=== PATIENT | female | born 1975 | race Caucasian/White ===

== ENCOUNTER → 2017-10-24 11:19 | Outpatient (CLI) | payer MEDICAID, SELFPAY ==
--- NOTE | 2017-10-24 12:03 | EKG12_ITS ---
Test Reason : PALPS Blood Pressure : / mmHG Vent. Rate : 060 BPM Atrial Rate : 060 BPM P-R Int : 150 ms QRS Dur : 082 ms QT Int : 420 ms P-R-T Axes : 029 059 039 degrees QTc Int : 420 ms Normal sinus rhythm Normal ECG Confirmed by SOM CLAUDIO, FLORIAN ([id number]), health editor EDITH KOENIG ([id number]) on 10/26/2017 2:34:51 PM Referred By: Shantel MINOR Confirmed By:FLORIAN KEARNS MD
== END ==
DX: R00.2 Palpitations (principal)
CPT/HCPCS: 93005

== ENCOUNTER → 2017-11-03 16:22 | Outpatient (CLI) | payer MEDICAID, SELFPAY ==
--- NOTE | 2017-11-03 16:35 | RAD_ITS ---
XR Spine Cervical 4 or 5 Views INDICATION: PAIN x2 YEARS COMPARISON: None TECHNIQUE: 5 views of the cervical spine FINDINGS: There is mild lower cervical kyphosis with large bridging osteophyte at C6-7. Remaining levels appear within normal limits. There is normal alignment at the atlantoaxial articulation. Prevertebral soft tissue stripe is within normal limits. RAD/Cerv Spine 4 or 5 Views IMPRESSION: Lower cervical kyphosis with large anterior bridging osteophyte at C6-7. at 2057 Reported and signed by: Simran Hernandez MD Electronically Signed: Simran Hernandez MD at 19:55 EST Tel , Service support ,
== END ==
PROVIDERS: Visit Provider Nurse Practitioner Family
DX: M40.202 Unspecified kyphosis, cervical region (principal)
CPT/HCPCS: 72050

== ENCOUNTER → 2017-11-16 13:05 | Outpatient (CLI) | payer MEDICAID, SELFPAY ==
--- NOTE | 2017-11-16 13:07 | HPBI_ITS ---
MAMMOGRAPHY - BILATERAL DIAGNOSTIC REASON FOR EXAM: Female, 41 years old. Left bloody discharge. PERTINENT HISTORY: Mother with breast cancer. Grandmother with breast cancer. Aunt with breast cancer. TECHNIQUE: Digital bilateral breast maria fernanda (3D mammographic acquisition) in the CC and MLO projections. 2-D mediolateral oblique (MLO) and craniocaudad (CC) views of both breasts were obtained. CAD: Full Field Digital Mammography with Computer Added Detection was performed. COMPARISON: Comparison is made with prior examination dated January 20, 2017. FINDINGS: Breast Composition: The breasts are heterogeneously dense, which may obscure small masses. There are no dominant masses or suspicious calcifications. Stable benign-appearing bilateral axillary lymph nodes. No other significant abnormalities are identified. There has been no significant change since the prior study. BI/DIAG MAMM W/CAD, BILAT IMPRESSION: Stable bilateral diagnostic mammogram. With the patient's history of left bloody discharge, correlation with ultrasound is recommended. ASSESSMENT CATEGORY: BIRADS Category 0: Incomplete. Need additional imaging evaluation. A letter regarding these results will be sent to the patient by the facility within 30 days. Approximately 10% of breast cancers are not detected by mammography. A normal mammogram should not delay biopsy of a clinically suspicious abnormality. Electronically Signed: Anselmo Randolph MD at 14:55 EDT Tel [phone], Service support ,
--- NOTE | 2017-11-16 13:12 | US_ITS ---
STUDY: ULTRASOUND BREAST - LEFT REASON FOR EXAM: Female, 41 years old. One episode of bloody discharge from the left pararenal. TECHNIQUE: Axial and longitudinal images of the LEFT breast were performed with a high resolution ultrasound transducer. COMPARISON: Comparison is made with prior mammogram done earlier in the day. FINDINGS: LEFT Breast: Mildly dilated retroareolar ducts are seen. No solid or cystic mass lesion is present. US/Breast Limited Unilateral IMPRESSION: Mild retroareolar ductal dilatation. ASSESSMENT CATEGORY: BIRADS Category 2: Benign. A letter regarding these results will be sent to the patient by the facility within 30 days. Electronically Signed: Anselmo Randolph MD at 14:17 EDT Tel [phone], Service support ,
== END ==
DX: N64.52 Nipple discharge (principal)
CPT/HCPCS: 76642; 77062; 77066; G0279

== ENCOUNTER → 2017-11-18 07:44 | Outpatient (CLI) | payer MEDICAID, SELFPAY ==
--- NOTE | 2017-11-18 10:28 | PFTCOMP ---
COMPLETE PULMONARY FUNCTION TEST INTERPRETATION Brief HPI: Patient is a 41 year old female, currently under the care of Jazmyne Shields, who presents to [facility] for complete pulmonary function tests secondary to diagnosis of dyspnea. Respiratory therapist reports good effort and reproducible results. Interpretation: Forced expiration spirometry shows a mild large airways obstructive ventilatory defect with an FEV1 of 88 % predicted. There is a significant bronchodilator response in FEV1 by ATS criteria. Spirograms are of good quality and plateau slowly, indicating slowly emptying areas of the lungs. The respiratory flow volume loop shows decreased expiratory flow rates at high lung volumes consistent with small airways obstruction. Lung volumes by body plethysmography show a normal total lung capacity at 5.77 L, 102 % predicted. All other lung volumes are within normal limits. Diffusion capacity by carbon monoxide is normal at 72 % predicted. The airway resistance is elevated. No previous pulmonary function tests were available for review. Impression: Fully reversible mild large airways obstructive ventilatory defect, consistent with the diagnosis of asthma.
== END ==
DX: R06.02 Shortness of breath (principal)
CPT/HCPCS: 94060; 94726; 94729

== ENCOUNTER → 2017-11-24 13:48 | Outpatient (CLI) | payer MEDICAID, SELFPAY ==
--- NOTE | 2017-11-24 13:50 | ECHOD_ITS ---
Reason For Study: PALPITATIONS Procedure This was a 2D Doppler, Color Flow transthoracic echocardiogram. Exam performed in department. Left Ventricle Normal LV size. Left ventricular systolic function is normal. The estimated ejection fraction is 65 %. No regional wall motion abnormalities noted. Right Ventricle Normal RV size. Normal systolic function. Atria Normal left atrium. Normal right atrium. Mitral Valve Normal mitral valve. Tricuspid Valve Normal tricuspid valve. Mild tricuspid valve insufficiency. Pulmonary artery systolic pressure is 29 mmHg. Aortic Valve Normal aortic valve. Pulmonic Valve Normal pulmonic valve. Great Vessels Normal aortic root. The pulmonary artery is normal size. Pericardium/Pleural No pericardial effusion. MMode/2D Measurements & Calculations LVIDd: 4.6 cm IVSd: 0.93 cm Ao root diam: 3.0 cm LVIDs: 2.6 cm LVPWd: 1.0 cm LA dimension: 3.6 cm RVDd: 3.1 cm FS: 43.0 % LAV(MOD-bp): 53.8 ml LA A4 area: 17.7 cm2 RA A4 area: 14.7 cm2 LAV(MOD-bp) Indexed: 27.7 ml/m2 LAV(MOD-sp2): 54.0 ml LAV(MOD-sp4): 53.8 ml Time Measurements MV dec time: 0.20 sec Doppler Measurements & Calculations MV E max teo: 94.8 cm/sec Lat Peak E' Teo: 14.8 cm/sec Med Peak E' Teo: 9.6 cm/sec MV A max teo: 59.8 cm/sec E/E' lat: 6.4 E/E' med: 9.9 MV E/A: 1.6 Ao V2 max: 114.9 cm/sec LV V1 max: 105.0 cm/sec PA V2 max: 86.1 cm/sec Ao max P.3 mmHg LV V1 max P.4 mmHg TR max teo: 243.8 cm/sec TR max P.0 mmHg Interpretation Summary Normal LV size. Left ventricular systolic function is normal. The estimated ejection fraction is 65 %. Mild tricuspid valve insufficiency. Pulmonary artery systolic pressure is 29 mmHg. Structurally normal valves. Ordering Physician: Shantel Farris Referring Physician: KAVITA SERNA Performed By: Sydney Patel, JOSE MARTIN, RVT
== END ==
DX: R00.2 Palpitations (principal)
CPT/HCPCS: 93306

== ENCOUNTER → 2019-05-24 11:42 | Outpatient (CLI) | payer MEDICAID, SELFPAY ==
[2019-05-24 14:28] LABS: Thyroid Stim Hormone (TSH) 3.77 uIU/mL (0.358-3.74)
== END ==
PROVIDERS: Family Provider Family Medicine; PCP Family Medicine; Referring Provider Family Medicine; Visit Provider Family Medicine
DX: F41.9 Anxiety disorder, unspecified (principal)
CPT/HCPCS: 36415; 84443

== ENCOUNTER 2021-04-21 12:56 | Emergency (ER) | payer MEDICAID, SELFPAY ==
[2021-04-21 12:57] VITALS: BP 129/92; PULSE 87; RESP 14; TEMP 36.5; O2SAT 99; BMI 25.0
--- NOTE | 2021-04-21 13:05 | RAD_ITS ---
STUDY: X-RAY - RIGHT FOOT CLINICAL: Lateral right foot pain and swelling, right foot injury. TECHNIQUE: 3 view(s) of the foot. COMPARISON: None. FINDINGS: Normal talus, calcaneus, and tarsal bones. Normal visualized subtalar, talonavicular, calcaneocuboid, tarsal and tarsometatarsal articulations. There is a nondisplaced fracture of the base of the fifth metatarsal with intra-articular extension. Normal metatarsophalangeal joint of the great toe. Normal tibial and fibular sesamoid bones. Normal interphalangeal joint of the great toe. Normal phalanges of the great toe. Normal second through fifth metatarsophalangeal joints. Normal interphalangeal joints and phalanges of the lesser toes. There is soft tissue swelling. RAD/Foot min 3 Views IMPRESSION: Nondisplaced fracture of the fifth metatarsal base. Electronically Signed: Brennen Clemens MD at 13:23 EDT Tel , Service support ,
== END 2021-04-21 14:09 | disposition left against medical advice (07) ==
LOC: ED 14:25
DX: S92.354A Nondisplaced fracture of fifth metatarsal bone, right foot, initial encounter for closed fracture (principal)
CPT/HCPCS: 73630

== ENCOUNTER 2021-06-26 16:22 | Outpatient (CLI) | payer MEDICAID, SELFPAY ==
[2021-06-26] MEDS: 0.9% Saline Lock 10 ML Syringe IV (17:42)
[2021-06-26 17:44] VITALS: BP 152/96; PULSE 80; RESP 16; TEMP 36.4; O2SAT 100; BMI 25.0
[2021-06-26 18:25] VITALS: BP 148/99; PULSE 77; RESP 16; TEMP 37; O2SAT 99
[2021-06-26 19:22] VITALS: BP 128/99; PULSE 76; RESP 16; TEMP 36.6; O2SAT 100
== END 2021-06-26 19:37 | disposition home or self-care (01) ==
LOC: MS3OUT 16:23 → MS3 17:15
PROVIDERS: Referring Provider Nurse Practitioner Acute Care; Visit Provider Nurse Practitioner Acute Care
DX: Z23 Encounter for immunization (principal); U07.1 COVID-19
CPT/HCPCS: J7050; M0245; Q0245; A4216

== ENCOUNTER → 2022-04-11 | Outpatient (CLI) | payer MEDICAID, SELFPAY ==
[2022-04-11 14:07] LABS: Absolute Neutrophil Count 5.8 X10^3/uL (2.0-7.7); Basophil# 0.02 X10^3/uL; Basophil% 0.2 % (0-1); Eosinophil# 0.11 X10^3/uL; Eosinophils% 1.2 % (0-5); Hematocrit 41.7 % (37-47); Hemoglobin 13.8 g/dL (12.0-15.0); Mean Corp Hgb Conc 33.1 g/dL (32-36); Mean Corpuscular Hgb 28.9 pg (27.0-32.0); Mean Corpuscular Volume 87.2 fL (81-99); Mean Platelet Vol. 10.2 fl (6.2-12.0); Monocyte# 1.05 X10^3/uL; Monocyte% 11.5 % (0-10); NRBC Flagged by Analyzer 0 % (0-5); Neutrophil # 5.82 X10^3/uL (2.7-7.7); Neutrophil % 63.8 % (47-70); Platelet Count 315 K/mm3 (150-450); RBC Distribution Width CV 12.4 % (11.6-14.6); RBC Distribution Width SD 39.6 fl (35.1-43.9); Red Blood Count 4.78 M/mm3 (4.2-5.4); White Blood Count 9.1 K/mm3 (4.4-11.0)
[2022-04-11 15:03] LABS: ALB/GLOB Ratio 0.8 RATIO (0.9-2.4); AST(SGOT) 15 U/L (15-37); Alanine Aminotransfer ALT/SGPT 26 U/L (13-56); Albumin, Serum 3.3 g/dL (3.2-5.0); Alkaline Phosphatase 63 U/L (45-117); Anion Gap 7 (5-15); BUN 13 mg/dL (7-18); Calcium,Total 8.6 mg/dL (8.5-10.1); Chloride 109 mmol/L (98-107); EST Glomerular Filtration Rate 64 mL/min (>60); Est Glom Filt Rate - Afr Amer 77 mL/min (>60); Glucose 91 mg/dL (74-106); Protein, Total 7.3 g/dL (6.4-8.2); Sodium Level 140 mmol/L (136-145); Thyroid Stim Hormone (TSH) 3.67 uIU/mL (0.358-3.74)
[2022-04-12 08:02] LABS: Hepatitis B Surface Antibody Non-Reactive
[2022-04-13 07:08] LABS: HEPATITIS B SURFACE AG Negative (Negative); Hep C Antibodies 0.2 s/co ratio (0.0-0.9); Hepatitis A IgM Antibody Negative (Negative); Hepatitis B Core AB IgM Negative (Negative)
[2022-04-13 08:26] LABS: Hepatitis A AB, Total Negative (Negative)
[2022-04-16 17:07] LABS: Alternaria alternata <0.10 kU/L (Class 0); Beef <0.10 kU/L (Class 0); Bermuda Grass <0.10 kU/L (Class 0); Bluegrass, Kentucky <0.10 kU/L (Class 0); Cat Hair/Dander, Standard <0.10 kU/L (Class 0); Chocolate <0.10 kU/L (Class 0); Corn <0.10 kU/L (Class 0); D farinae Mite <0.10 kU/L (Class 0); D pteronyssinus <0.10 kU/L (Class 0); Dog Epithelia 0.32 kU/L (Class I); Egg, Whole <0.10 kU/L (Class 0); Elm, American White <0.10 kU/L (Class 0); Milk (Cow) <0.10 kU/L (Class 0); Mouse Urine <0.10 kU/L (Class 0); Oak, White <0.10 kU/L (Class 0); Peanut <0.10 kU/L (Class 0); Plantain, English <0.10 kU/L (Class 0); Pork <0.10 kU/L (Class 0); Soybean <0.10 kU/L (Class 0); Wheat <0.10 kU/L (Class 0)
[2022-04-17 14:27] LABS: ANTINUCLEAR ANTIBODIES DIRECT Negative (Negative)
== END | disposition home or self-care (01) ==
LOC: LAB 13:37
PROVIDERS: Visit Provider Nurse Practitioner Adult Health
DX: R21 Rash and other nonspecific skin eruption (principal); Z20.9 Contact with and (suspected) exposure to unspecified communicable disease
CPT/HCPCS: 36415; 80053; 80074; 84443; 85025; 86003; 86005; 86038; 86706; 86708

== ENCOUNTER → 2022-10-04 | Outpatient (CLI) | payer MEDICAID, SELFPAY ==
[2022-10-04 16:35] LABS: Hematocrit 42.8 % (37-47); Hemoglobin 14.1 g/dL (12.0-15.0); Mean Corp Hgb Conc 32.9 g/dL (32-36); Mean Corpuscular Hgb 28.8 pg (27.0-32.0); Mean Corpuscular Volume 87.5 fL (81-99); Mean Platelet Vol. 10.4 fl (6.2-12.0); Platelet Count 296 K/mm3 (150-450); RBC Distribution Width CV 12.3 % (11.6-14.6); RBC Distribution Width SD 39.4 fl (35.1-43.9); Red Blood Count 4.89 M/mm3 (4.2-5.4); White Blood Count 9.3 K/mm3 (4.4-11.0)
[2022-10-04 16:57] LABS: Erythrocyte Sedimentation Rate 9 mm/hr (0-30)
[2022-10-04 17:26] LABS: ALB/GLOB Ratio 0.8 RATIO (0.9-2.4); AST(SGOT) 28 U/L (15-37); Alanine Aminotransfer ALT/SGPT 56 U/L (13-56); Albumin, Serum 3.3 g/dL (3.2-5.0); Alkaline Phosphatase 91 U/L (45-117); Anion Gap 5 (5-15); BUN 12 mg/dL (7-18); BUN/Creat Ratio 11.1 RATIO (10-20); Calcium,Total 8.6 mg/dL (8.5-10.1); Chloride 104 mmol/L (98-107); Creatinine, Serum 1.08 mg/dL (0.55-1.02); EST Glomerular Filtration Rate 58 mL/min (>60); Est Glom Filt Rate - Afr Amer 70 mL/min (>60); Globulin 4.2 g/dL (2.2-4.2); Glucose 103 mg/dL (74-106); Protein, Total 7.5 g/dL (6.4-8.2); Rheumatoid Factor < 10.0 IU/mL (<15); Sodium Level 140 mmol/L (136-145); T4 Free Direct 1.16 ng/dL (0.76-1.46); Thyroid Stim Hormone (TSH) 4.24 uIU/mL (0.358-3.74)
[2022-10-06 18:52] LABS: ANTINUCLEAR ANTIBODIES DIRECT Negative (Negative)
== END | disposition home or self-care (01) ==
LOC: LAB 16:03
DX: E03.9 Hypothyroidism, unspecified (principal); M79.10 Myalgia, unspecified site
CPT/HCPCS: 36415; 80053; 84439; 84443; 85027; 85652; 86038; 86140; 86431

== ENCOUNTER → 2023-01-04 | Outpatient (CLI) | payer MEDICAID, SELFPAY ==
[2023-01-04 13:41] LABS: Absolute Lymphocyte Count 2.53 X10^3/uL (0.83-4.51); Absolute Neutrophil Count 5.8 X10^3/uL (2.0-7.7); Basophil# 0.04 X10^3/uL; Basophil% 0.4 % (0-1); Eosinophil# 0.06 X10^3/uL; Eosinophils% 0.6 % (0-5); Hematocrit 40.4 % (37-47); Hemoglobin 12.9 g/dL (12.0-15.0); Lymphocyte # 2.53 X10^3/ul (0.83-4.51); Lymphocyte % 26.6 % (19-41); Mean Corp Hgb Conc 31.9 g/dL (32-36); Mean Corpuscular Hgb 27.8 pg (27.0-32.0); Mean Corpuscular Volume 87.1 fL (81-99); Mean Platelet Vol. 10.3 fl (6.2-12.0); Monocyte# 1.04 X10^3/uL; Monocyte% 10.9 % (0-10); NRBC Flagged by Analyzer 0 % (0-5); Neutrophil % 61.2 % (47-70); Platelet Count 297 K/mm3 (150-450); RBC Distribution Width CV 13.5 % (11.6-14.6); RBC Distribution Width SD 42.9 fl (35.1-43.9); Red Blood Count 4.64 M/mm3 (4.2-5.4); White Blood Count 9.5 K/mm3 (4.4-11.0)
[2023-01-04 14:07] LABS: ALB/GLOB Ratio 0.9 RATIO (0.9-2.4); AST(SGOT) 19 U/L (15-37); Alanine Aminotransfer ALT/SGPT 34 U/L (13-56); Albumin, Serum 3.6 g/dL (3.2-5.0); Alkaline Phosphatase 78 U/L (45-117); Anion Gap 4 (5-15); BUN 13 mg/dL (7-18); BUN/Creat Ratio 13.8 RATIO (10-20); Calcium,Total 8.7 mg/dL (8.5-10.1); Chloride 109 mmol/L (98-107); Creatinine, Serum 0.94 mg/dL (0.55-1.02); EST Glomerular Filtration Rate 68 mL/min (>60); Est Glom Filt Rate - Afr Amer 82 mL/min (>60); Globulin 3.9 g/dL (2.2-4.2); Glucose 94 mg/dL (74-106); Potassium 3.9 mmol/L (3.5-5.1); Protein, Total 7.5 g/dL (6.4-8.2); Sodium Level 140 mmol/L (136-145)
[2023-01-04 14:09] LABS: hCG Titer Quant., Serum < 1 mIU/mL (1-3)
[2023-01-04 14:36] LABS: HIV - WCH Non-Reactive (Nonreactive); Hepatitis B Surface Antibody Non-Reactive; Hepatitis B Surface Antigen Non-Reactive (Nonreactive)
[2023-01-06 05:07] LABS: Hepatitis A AB, Total Negative (Negative); Hepatitis B Core Ab Total Negative (Negative)
== END | disposition home or self-care (01) ==
LOC: LAB 13:03
DX: F11.20 Opioid dependence, uncomplicated (principal)
CPT/HCPCS: 36415; 80053; 84702; 85025; 86703; 86704; 86706; 86708; 86803; 86804; 87340

== ENCOUNTER 2023-01-18 11:23 | Emergency (ER) | payer MEDICAID, SELFPAY ==
[2023-01-18 11:24] VITALS: BP 157/86; PULSE 88; RESP 16; TEMP 36.6; O2SAT 98; BMI 32.1
[2023-01-18 12:38] LABS: Absolute Lymphocyte Count 2.52 X10^3/uL (0.83-4.51); Absolute Neutrophil Count 4.8 X10^3/uL (2.0-7.7); Basophil# 0.04 X10^3/uL; Basophil% 0.5 % (0-1); Eosinophil# 0.13 X10^3/uL; Eosinophils% 1.5 % (0-5); Hematocrit 41.2 % (37-47); Hemoglobin 13.2 g/dL (12.0-15.0); Lymphocyte # 2.52 X10^3/ul (0.83-4.51); Lymphocyte % 29.9 % (19-41); Mean Corpuscular Hgb 27.7 pg (27.0-32.0); Mean Corpuscular Volume 86.6 fL (81-99); Mean Platelet Vol. 10.1 fl (6.2-12.0); Monocyte# 0.89 X10^3/uL; Monocyte% 10.6 % (0-10); NRBC Flagged by Analyzer 0 % (0-5); Neutrophil # 4.82 X10^3/uL (2.7-7.7); Neutrophil % 57.3 % (47-70); Platelet Count 325 K/mm3 (150-450); RBC Distribution Width CV 12.9 % (11.6-14.6); RBC Distribution Width SD 40.9 fl (35.1-43.9); Red Blood Count 4.76 M/mm3 (4.2-5.4); White Blood Count 8.4 K/mm3 (4.4-11.0)
[2023-01-18 12:51] LABS: Anion Gap 6 (5-15); BUN 13 mg/dL (7-18); BUN/Creat Ratio 14.4 RATIO (10-20); Chloride 109 mmol/L (98-107); EST Glomerular Filtration Rate 72 mL/min (>60); Est Glom Filt Rate - Afr Amer 87 mL/min (>60); Estimated Creatinine Clearance 75.95 ml/min; Glucose 85 mg/dL (74-106); Potassium 3.7 mmol/L (3.5-5.1); Sodium Level 142 mmol/L (136-145)
--- NOTE | 2023-01-18 13:54 | EX.ED.DYSGE1 ---
HPI History of Present Illness Chief Complaint: Numb/Ting Detail of Chief Complaint: Wrist weakness and skin infection Informant: patient Narrative Narrative: Patient presents with primary concern of left wrist weakness. She states when she woke this morning she was not able to extend her left wrist or move her fingers very well. She states it does feel gets [id number]. She has no problems with weakness at the elbow or shoulder. She states it was normal when she went to bed last night and she is not sure if she may have slept on it wrong. It has not gotten any better over the past several hours so she came in for evaluation. Patient also is concerned about possible MRSA skin infection. She has multiple skin lesions on her face, arms, legs. [facility] Medical History Anxiety Depression Hypothyroidism Vitiligo Home Medications doxycycline monohydrate 100 mg capsule 100 mg PO BID #20 CAPSULES 01/18/23 [Rx Last Taken Unknown] levothyroxine 50 mcg tablet 50 mcg PO DAILY 01/18/23 [History Last Taken Unknown] prednisone 20 mg tablet 40 mg PO DAILY #10 tabs 01/18/23 [Rx Last Taken Unknown] sertraline 50 mg tablet 50 mg PO DAILY 01/18/23 [History Last Taken Unknown] Allergy/AdvReac Type Severity Reaction Status Date / Time diphenhydramine Allergy Angioedema Verified 01/18/23 11:26 [From Benadryl] Surgical History History of Social History Smoking Status: Never smoker ROS ROS ED Constitutional Constitutional ED: Denies chills or fever(s) Eyes Eyes: Denies change in vision or discharge from eye(s) ENT ENT ED: Denies discharge from eye(s), rhinorrhea or sore throat Cardiovascular Cardiovascular: Denies chest pain or palpitations Respiratory/Chest Respiratory/Chest: Denies cough or dyspnea Gastrointestinal Gastrointestinal: Denies abdominal pain, nausea or vomiting Genitourinary Genitourinary ED: Denies dysuria Musculoskeletal Musculoskeletal: Denies back pain or extremity pain Integumentary Denies Abrasions or rash Neurologic Neurologic: Reports paresthesias and weakness; Denies headache(s) Psychiatric Psychiatric: Denies anxiety or depression Allergic/Immunologic Allergic/Immunologic ED: Denies lip swelling or urticaria EXAM Physical Exam Const Vital Signs: 01/18/23 11:24 Temperature 98 F Temperature Source Temporal Pulse Rate 88 Respiratory Rate 16 Blood Pressure 157/86 H Blood Pressure Mean 109 Pulse Ox 98 Oxygen Delivery Method Room Air Positive well nourished and well developed General Appearance ED: well developed HEENT Reports normocephalic and head/scalp atraumatic Eyes PERRL and EOMs intact bilaterally Neck supple Chest Wall inspection of chest normal and palpation of chest normal Resp normal respiratory effort and clear to auscultation bilaterally Cardio regular rate and regular rhythm GI normal to inspection, nondistended, normoactive bowel sounds Palpation: soft Back/Spine no CVA tenderness Extremity Extremity Narrative: Normal strength noted at the left shoulder and elbow. Patient has weakness with wrist extension. She is able to flex her left wrist. She is able to make a tight fist but has weakness with full extension of her fingers. She has normal cap refill. Neuro oriented x3 Sensorium / Orientation: alert Psych mental status grossly normal Skin Skin Narrative: Multiple scattered scabbed lesions noted on her face and left upper extremity consistent with folliculitis. MDM MDM MDM Narrative Medical decision making narrative: Labwork obtained to evaluate for leukocytosis, anemia, and electrolyte derangement. Lab Data Labs: Laboratory Results - last 24 hr 01/18/23 01/18/23 12:30 12:30 WBC 8.4 RBC 4.76 Hgb 13.2 Hct 41.2 MCV 86.6 MCH 27.7 MCHC 32.0 RDW Std Deviation 40.9 RDW Coeff of Brady 12.9 Plt Count 325 MPV 10.1 Immature Gran % (Auto) 0.200 Neut % (Auto) 57.3 Lymph % (Auto) 29.9 Wayne % (Auto) 10.6 H Eos % (Auto) 1.5 Baso % (Auto) 0.5 Absolute Neuts (auto) 4.8 Absolute Lymphs (auto) 2.52 Nucleated RBC % 0 Sodium 142 Potassium 3.7 Chloride 109 H Carbon Dioxide 27.0 Anion Gap 6 BUN 13 Creatinine 0.90 Estim Creat Clear Calc 75.95 Est GFR (MDRD) Af Amer 87 Est GFR (MDRD) Non-Af 72 BUN/Creatinine Ratio 14.4 Glucose 85 Calcium 9.0 Treatment and Re-Evaluation :: CBC is unremarkable. Chemistry studies normal, specifically normal potassium level. Glucose is normal at 85. Patient's exam is consistent with a neuropraxia and not a central neuro process. Patient is given a left wrist splint. She is instructed to come out of the splint several times to work on range of motion and strengthening. I encouraged her to follow-up with her primary care physician for possible physical therapy. She was advised that this can take several weeks to improve. She will be given a short course of steroids to help with any nerve inflammation. Patient will also be given a course of doxycycline for her folliculitis/skin infection. Discharge Plan Triage Chief Complaint: Numb/Ting ED Provider: Madelin Driscoll Dx/Rx/DC Orders Clinical Impression: Radial nerve palsy, Neurapraxia, Folliculitis Instructions: ED Folliculitis, ED Radial Nerve Palsy Prescriptions: New doxycycline monohydrate 100 mg capsule 100 mg PO BID Qty: 20 0RF prednisone 20 mg tablet 40 mg PO DAILY Qty: 10 0RF No Action levothyroxine 50 mcg tablet 50 mcg PO DAILY sertraline 50 mg tablet 50 mg PO DAILY Primary Care Provider: [facility] Kendy Chacon Referrals: [facility],Kendy Gonzalez [Primary Care Provider] - 1 Week if not improving Disposition Disposition: Home, Self Care
[2023-01-18 14:10] VITALS: BP 114/67; PULSE 52; RESP 16; O2SAT 98
== END 2023-01-18 14:11 | disposition home or self-care (01) ==
PROVIDERS: Emergency Provider Emergency Medicine; Visit Provider Emergency Medicine
DX: L73.9 Follicular disorder, unspecified (principal); G56.30 Lesion of radial nerve, unspecified upper limb; T14.8XXA Other injury of unspecified body region, initial encounter; E03.9 Hypothyroidism, unspecified; F41.9 Anxiety disorder, unspecified; Z79.899 Other long term (current) drug therapy
CPT/HCPCS: A4570; 80048; 85025; 99284; A4216

== ENCOUNTER → 2023-07-04 | Outpatient (CLI) | payer MEDICAID, SELFPAY ==
[2023-07-04 14:36] LABS: Erythrocyte Sedimentation Rate 7 mm/hr (0-30)
[2023-07-04 14:38] LABS: Absolute Lymphocyte Count 2.67 X10^3/uL (0.83-4.51); Absolute Neutrophil Count 4.8 X10^3/uL (2.0-7.7); Basophil# 0.05 X10^3/uL; Basophil% 0.6 % (0-1); Eosinophil# 0.09 X10^3/uL; Hematocrit 41.9 % (37-47); Hemoglobin 13.5 g/dL (12.0-15.0); Lymphocyte # 2.67 X10^3/ul (0.83-4.51); Lymphocyte % 30.9 % (19-41); Mean Corp Hgb Conc 32.2 g/dL (32-36); Mean Corpuscular Hgb 28.4 pg (27.0-32.0); Mean Corpuscular Volume 88.2 fL (81-99); Mean Platelet Vol. 10.6 fl (6.2-12.0); Monocyte# 0.98 X10^3/uL; Monocyte% 11.4 % (0-10); NRBC Flagged by Analyzer 0 % (0-5); Neutrophil # 4.82 X10^3/uL (2.7-7.7); Neutrophil % 55.9 % (47-70); Platelet Count 356 K/mm3 (150-450); RBC Distribution Width CV 12.7 % (11.6-14.6); RBC Distribution Width SD 41.1 fl (35.1-43.9); Red Blood Count 4.75 M/mm3 (4.2-5.4); White Blood Count 8.6 K/mm3 (4.4-11.0)
[2023-07-04 15:02] LABS: Hemoglobin A1c 5.4 % (3.8-5.6); Vitamin B12 507 pg/mL (211-911)
[2023-07-04 15:07] LABS: ALB/GLOB Ratio 0.8 RATIO (0.9-2.4); AST(SGOT) 15 U/L (15-37); Alanine Aminotransfer ALT/SGPT 28 U/L (13-56); Albumin, Serum 3.6 g/dL (3.2-5.0); Alkaline Phosphatase 82 U/L (45-117); Anion Gap 5 (5-15); BUN 14 mg/dL (7-18); BUN/Creat Ratio 14.5 RATIO (10-20); CRP 5.78 mg/L (0.0-3.0); Calcium,Total 8.9 mg/dL (8.5-10.1); Chloride 107 mmol/L (98-107); Cholesterol 174 mg/dL (200); Creatinine, Serum 0.97 mg/dL (0.55-1.02); EST Glomerular Filtration Rate 66 mL/min (>60); Est Glom Filt Rate - Afr Amer 80 mL/min (>60); Globulin 4.3 g/dL (2.2-4.2); Glucose 93 mg/dL (74-106); High Density Lipoprotein 55 mg/dL; Potassium 3.8 mmol/L (3.5-5.1); Protein, Total 7.9 g/dL (6.4-8.2); Sodium Level 140 mmol/L (136-145); Thyroid Stim Hormone (TSH) 4.55 uIU/mL (0.358-3.74); Triglycerides 110 mg/dL; Very Low Density Lipoprotein 22 mg/dL (5-40)
[2023-07-06 08:26] LABS: Hepatitis C Ab Non-Reactive
[2023-07-06 12:09] LABS: ANTINUCLEAR ANTIBODIES DIRECT Negative (Negative)
== END | disposition home or self-care (01) ==
LOC: LAB 13:31
PROVIDERS: Referring Provider Nurse Practitioner Family; Visit Provider Nurse Practitioner Family
DX: E03.9 Hypothyroidism, unspecified (principal); R73.03 Prediabetes; M79.10 Myalgia, unspecified site
CPT/HCPCS: 36415; 80053; 80061; 82607; 83036; 84443; 85025; 85652; 86038; 86140; 86803; 86804

== ENCOUNTER 2023-10-16 23:42 | Emergency (ER) | payer MEDICAID, SELFPAY ==
[2023-10-16 23:44] VITALS: BP 143/84; PULSE 102; RESP 16; TEMP 36.2; BMI 33.5
[2023-10-16 23:47] VITALS: BP 143/84; PULSE 102; RESP 18; TEMP 36.2
--- NOTE | 2023-10-16 23:57 | EX.ED.UPPERE ---
HPI History of Present Illness HPI Narrative: Patient presents with left shoulder pain that began today. Patient states it has been constant. Patient denies any trauma or injury. Patient states it is worse with laying on her left shoulder and with any movement. Patient admits to some tingling in her left upper arm. Patient states she is having difficulty using her left arm due to the pain. Patient denies any specific weakness. Patient describes her pain as sharp. Patient states nothing seems to help with the pain. Chief Complaint: Upper Extremity Injury Informant: patient Onset/Context/Timing Onset: Today Context: Sudden Onset Timing: Continuous Quality of Pain: Sharp Location: Left shoulder and upper arm Worsened by: Laying on left shoulder, movement Relieved by: Nothing Associated Symptoms Associated Symptoms: Positive for Parasthesia; Negative for Weakness or Loss of Funtion [facility] Medical History (Updated 10/17/23 @ 01:[address] Suraj Rene DO) Anxiety Depression Hypothyroidism Vitiligo Home Medications levothyroxine 50 mcg tablet 50 mcg PO DAILY 01/18/23 [History Last Taken Unknown] sertraline 50 mg tablet 50 mg PO DAILY 01/18/23 [History Last Taken Unknown] naproxen 500 mg tablet 500 mg PO BID PRN #20 tabs 10/17/23 [Rx Last Taken Unknown] Allergy/AdvReac Type Severity Reaction Status Date / Time diphenhydramine Allergy Angioedema Verified 10/16/23 23:44 [From Benadryl] Surgical History History of Hx of ovarian cystectomy Social History Smoking Status: Never smoker ROS ROS ED Constitutional Constitutional ED: Denies chills or fever(s) Eyes Eyes: Denies blurry vision or change in vision ENT ENT ED: Denies rhinorrhea or sore throat Cardiovascular Cardiovascular: Denies chest pain or palpitations Respiratory/Chest Respiratory/Chest: Denies cough or dyspnea Gastrointestinal Gastrointestinal: Denies nausea or vomiting Genitourinary Genitourinary ED: Denies dysuria or hematuria Musculoskeletal Musculoskeletal: Reports back pain and neck pain Integumentary Denies abscess or rash Neurologic Neurologic: Denies headache(s) or weakness Allergic/Immunologic Allergic/Immunologic ED: Denies mouth swelling or urticaria EXAM Physical Exam Const Vital Signs: 10/16/23 23:44 10/16/23 23:47 Temperature 97.1 F L 97.1 F L Temperature Source Temporal Temporal Pulse Rate 102 H 102 H Respiratory Rate 16 18 Blood Pressure 143/84 H 143/84 H Blood Pressure Mean 103 103 Positive well nourished and well developed General Appearance ED: well developed and NAD HEENT Reports moist mucous membranes Neck full ROM and supple Neck Narrative: There is mild tenderness over the left cervical paraspinal muscles. There is no midline tenderness. There is no bony crepitance or step-off noted. General: tenderness Extremity Extremity Narrative: There is tenderness palpation of the left shoulder and upper arm. There is no edema or ecchymosis. There is no deformity noted. Range of motion was limited in all motions of the left shoulder secondary to pain. Strength is 5/5 in the radial, median, and ulnar areas. Sensation was intact to light touch in the radial, median, and ulnar areas. Radial pulses are equal bilaterally. Neuro oriented x3, CN's II-XII intact bilaterally, moves all extremities, no focal motor deficits and no sensory deficits noted Sensorium / Orientation: alert Motor Exam: strength 5/5 throughout Psych mental status grossly normal MDM MDM MDM Narrative Medical decision making narrative: Differential diagnosis includes neuropathy, musculoskeletal strain, dislocation, and occult fracture. X-rays of the left shoulder will be obtained to assess for dislocation and occult fracture. Radiography Diagnostic Testing: X-rays of the left shoulder were obtained. There are 4 views. On my independent interpretation, there is no acute fracture or dislocation noted. There is no soft tissue swelling noted. Radiologist also interpreted the x-rays and agrees. Treatment and Re-Evaluation Narrative: Patient was given injection of morphine. Patient is feeling better on reevaluation. Patient was advised of her findings. Patient was advised that this could be from a cervical radiculopathy or muscle strain. Patient was given a prescription for Naprosyn. Patient was instructed to use ice to the area. Patient was instructed to follow-up with her primary care physician in 5 to 7 days for further evaluation. Patient understood and was agreeable with the plan. All questions were answered. Discharge Plan Triage Chief Complaint: Upper Extremity Injury ED Provider: Suraj Rene Dx/Rx/DC Orders Clinical Impression: Pain of left shoulder region, Hypothyroidism Instructions: ED Shoulder Pain, Uncertain Cause Prescriptions: New naproxen 500 mg tablet 500 mg PO BID PRN Qty: 20 0RF No Action levothyroxine 50 mcg tablet 50 mcg PO DAILY sertraline 50 mg tablet 50 mg PO DAILY Primary Care Provider: Ran Contreras Chet [facility] [Non-Staff] - 3-5 Days Disposition Disposition: Home, Self Care
--- OUTSIDE RECORDS SUMMARY | 2023-10-17 00:11 | XMS RPT_ITS | CCD ---
Author Name Unknown Address [address] [place] [address] [address] [place] [id number] Organization [facility] Care Team Providers Care Yard Jacker Name Role Phone SUZANNA LOZANO Attending Unavailable Shantel Shields Referring Unavailable Encounters Encounter Date Encounter Type Care Provider Facility Start: 12-11-2018 Patient encounter procedure SUZANNA LOZANO Facility:[id number] Payers Date Payer Category Payer Unknown [id number] Unknown [id number] Summary Purpose Family History No Family History Records Found Advance Directives No Advanced Directives Records Found Additional Source Comments INFORMATION SOURCE (unrecogn ized section and content) FOR RECORDS PERTAINING TO PATIENTS WHO ARE OR HAVE BEEN ENROLLED IN A CHEMICAL DEPENDENCY/SUBSTANCEABUSE PROGRAM, SOME INFORMATION MAY BE OMITTED. This clinical summary was aggregated from multiple sources. Caution should be exercised in using it in the provision of clinical care. This summary normalizes information from multiple sources, and as a consequence, information in this document may materially change the coding, format and clinical context of patient data. In addition, data may be omitted in some cases. CLINICAL DECISIONS SHOULD BE BASED ON THE PRIMARY CLINICAL RECORDS. [facility] [employer] provides no warranty or guarantee of the accuracy or completeness of information in this document.
--- NOTE | 2023-10-17 00:19 | RAD_ITS ---
EXAM: XR LEFT SHOULDER COMPLETE, 2 OR MORE VIEWS CLINICAL INDICATION: Injury/Pain TECHNIQUE: Two or more views of the left shoulder. COMPARISON: No relevant prior studies available. FINDINGS: BONES/JOINTS: Unremarkable. No acute fracture. No subluxation. Normal alignment. Preservation of the joint space. No sclerotic or destructive changes observed. SOFT TISSUES: Unremarkable. No soft tissue swelling or gas. No radiopaque foreign body. RAD/Shoulder min 2 Views IMPRESSION: Negative left shoulder x-rays. Electronically Signed: Jose Chun MD at 0:42 EST ,
[2023-10-17] MEDS: Morphine 4 MG/ML Syringe IM (00:24)
[2023-10-17 01:48] VITALS: BP 126/74; PULSE 82; RESP 18; TEMP 36.6; O2SAT 100
== END 2023-10-17 01:51 | disposition home or self-care (01) ==
PROVIDERS: Emergency Provider Emergency Medicine; PCP Nurse Practitioner Family; Visit Provider Emergency Medicine
DX: M25.512 Pain in left shoulder (principal); E03.9 Hypothyroidism, unspecified; F41.9 Anxiety disorder, unspecified; F32.A Depression, unspecified; R20.2 Paresthesia of skin
CPT/HCPCS: 73030; 99282